=== PATIENT | female | born 2000 | race African-American/Black ===

== ENCOUNTER 2018-10-11 20:42 | Emergency (ER) | payer OTHER ==
[2018-10-11 21:03] VITALS: TEMP 98; BMI 25.7
[2018-10-11] MEDS ORDERED: DEXAMETHASONE SOD PHOSPHATE 10 MG/1 ML VIAL IVPUSH ONE (21:03)
[2018-10-11] MEDS ORDERED: LACTATED RINGERS SOLUTION 1000 ML INFUS.BAG IV ONE (21:04)
[2018-10-11] MEDS ORDERED: EPINEPHrine 1:1,000 0.3 MG/0.3 ML SYR IM ONE (21:07)
--- NOTE | 2018-10-11 21:07 | PDOC ---
History of Present Illness - General Chief Complaint: Allergic Reaction Stated Complaint: ALLERGIC REACTION Time Seen by Provider: 10/11/18 20:53 History Source: Patient Exam Limitations: No Limitations - History of Present Illness Initial Comments: 10/11/18 21:06 Pt is a 17yo F with PMH of Asthma presenting to ED with complaints of an allergic reaction. Pt came home from work at [employer] in the afternoon and had lip swelling, itchy throat and hives. At 7pm mother gave 50mg Benadryl. Pt came to ED because symptoms have not been resolving and feels worse. Pt endorses itchy throat, lip swelling and hives. Denies wheezing, SOB, nausea, vomiting, diarrhea, palpitations, fevers, chills. Per mother pt is allergic to peanuts, shellfish and has seasonal allergies but has noticed that pt has been getting these reactions more frequently. They have seen an electrical contacts adjuster and were given a prescription for EpiPen. PMD: PMH: see hpi PSH: none Social: denies Allergies: nkda Past History - Past Medical History Allergies/Adverse Reactions: Allergies Allergy/AdvReac Type Severity Reaction Status Date / Time dog dander Allergy Verified 10/11/18 20:57 Home Medications: Ambulatory Orders predniSONE [Deltasone -] 10 mg PO ASDIR #8 tab 10/11/18 Asthma: Yes Cancer: No Cardiac Disorders: No CVA: No COPD: No CHF: No DVT: No - Surgical History Abdominal Surgery: No Appendectomy: No Cardiac Surgery: No Cholecystectomy: No Gastric Stapling: No - Suicide/Smoking/Psychosocial Hx Smoking History: Never smoked Information on smoking cessation initiated: No Drug/Substance Use Hx: No Review of Systems - Review of Systems Constitutional: No: Chills, Diaphoresis, Fever HEENTM: Yes: See HPI, Other (lip swelling, itchy throat). No: Eye Pain, Throat Swelling Respiratory: Yes: Shortness of Breath. No: Cough Cardiac (ROS): No: Chest Pain, Lightheadedness, Palpitations, Syncope ABD/GI: No: Constipated, Diarrhea, Nausea, Vomiting, Abdominal cramping : No: Symptoms Reported Musculoskeletal: No: Symptoms Reported Integumentary: Yes: Pruritus. No: Change in Color, Lumps, Rash Neurological: No: Symptoms reported *Physical Exam - Vital Signs Last Vital Signs Temp Pulse Resp BP Pulse Ox 98 F 115 H 20 139/85 100 10/11/18 20:52 10/11/18 20:52 10/11/18 20:52 10/11/18 20:52 10/11/18 20:52 - Physical Exam General Appearance: Yes: Nourished, Appropriately Dressed, Moderate Distress HEENT: positive: EOMI, GANESH, Normal ENT Inspection, TMs Normal, Pharynx Normal, Hearing Grossly Normal, Other (normal oropharynx, no swelling). negative: Tonsillar Erythema Neck: positive: Trachea midline, Supple. negative: Lymphadenopathy (R), Lymphadenopathy (L) Respiratory/Chest: positive: Lungs Clear, Normal Breath Sounds. negative: Respiratory Distress, Accessory Muscle Use, Rapid RR, Paradoxal Breathing, Crackles, Rales, Rhonchi, Stridor, Wheezing, Hyperresonant, Dullness Cardiovascular: positive: Regular Rhythm, S1, S2, Tachycardia. negative: Edema , JVD, Murmur Vascular Pulses: Carotid (R): 2+, Carotid (L): 2+, Dorsalis-Pedis (R): 2+, Doralis-Pedis (L): 2+ Gastrointestinal/Abdominal: positive: Normal Bowel Sounds, Soft. negative: Distended, Guarding, Rebound, Tenderness Musculoskeletal: positive: Normal Inspection. negative: CVA Tenderness Extremity: positive: Normal Capillary Refill. negative: Coldness, Cyanosis Integumentary: positive: Normal Color, Dry, Warm. negative: Erythema, Pale, Cold, Clammy, Rash, Swelling Neurologic: positive: line technician II-XII NML intact, Fully Oriented, Alert, Normal Mood/ Affect, Normal Response, Motor Strength 5/5 Moderate Sedation - Procedure Monitoring Vital Signs: Procedure Monitoring Vital Signs Temperature 98 F 10/11/18 20:52 Pulse Rate 115 H 10/11/18 20:52 Respiratory Rate 20 10/11/18 20:52 Blood Pressure 139/85 10/11/18 20:52 O2 Sat by Pulse Oximetry (%) 100 10/11/18 20:52 ED Treatment Course - LABORATORY CBC & Chemistry Diagram: 10/11/18 21:11 10/11/18 21:11 Medical Decision Making - Medical Decision Making 10/11/18 21:57 Pt is a 17yo F with PMH of Asthma presenting to ED with complaints of an allergic reaction. Pt came home from work at [employer] in the afternoon and had lip swelling, itchy throat and hives. At 7pm mother gave 50mg Benadryl. Pt came to ED because symptoms have not been resolving and feels worse. Pt endorses itchy throat, lip swelling and hives. Denies wheezing, SOB, nausea, vomiting, diarrhea, palpitations, fevers, chills. Per mother pt is allergic to peanuts, shellfish and has seasonal allergies but has noticed that pt has been getting these reactions more frequently. They have seen an electrical contacts adjuster and were given a prescription for EpiPen. Vitals: tachycardia, saturating well on RA, normotensive PE: lower lip swelling. No tongue swelling, no pharyngeal, tonsillar swelling , Uvula not deviated, no hives, no wheezing. Pt took Benadryl at 7pm. Will give [id number], epinephrine sq and fluids. Will reassess cbc, cmp and serum Labs wnl. Pt reports feeling better. Vitals wnl, normal O2 saturation, no signs of respiratory distress. Will DC home with short course of steroids. given Referral to Dr. Gaffney. Given strict return precautions. *DC/Admit/Observation/Transfer Diagnosis at time of Disposition: Allergic reaction Qualifiers: Encounter type: initial encounter Qualified Code(s): T78.40XA - Allergy, unspecified, initial encounter - Discharge Dispostion Disposition: HOME Condition at time of disposition: Improved Decision to Admit order: No - Prescriptions Prescriptions: predniSONE [Deltasone -] 10 mg PO ASDIR #8 tab - Referrals Referrals: Wade Gaffney MD [Staff Physician] - - Patient Instructions Printed Discharge Instructions: DI for General Allergic Reactions Additional Instructions: You were seen here today for an allergic reaction. We do not know the exact cause of this. Your blood tests were normal. I recommend you see an electrical contacts adjuster to figure out what may be causing these reactions and how to better manage them. Dr. Gaffney is affiliated with [place], if you like you can call and schedule an appointment A prescription for a steroid, prednisone, was sent to your pharmacy. Please take as directed. Use the Epipen if you experience a severe reaction and go to the nearest emergency room. Come back to the emergency room if you have another reaction, have difficulty breathing, worsening hives or if any new concerning symptom develops. Thank you - Post Discharge Activity Forms/Work/School Notes: Back to Work, Parent(s) Back to Work Note, Back to School
[2018-10-11] MEDS ORDERED: EPINEPHrine/PF 1 MG/1 ML (1:1,000) AMPULE ONE (21:14)
[2018-10-11] MEDS ORDERED: DEXAMETHASONE SOD PHOSPHATE 10 MG/1 ML VIAL ONE (21:14)
[2018-10-11 21:24] LABS: BASO % 0.7 % (0-2.0); HEMATOCRIT 33.9 % (32.4-45.2); HEMOGLOBIN 11.6 GM/dL (10.7-15.3); LYMPH % 38.1 % (8-40); MCH 30.5 pg (25.7-33.7); MCHC 34.3 g/dl (32.0-36.0); MEAN CELL VOLUME 88.7 fl (80-96); MEAN PLT VOLUME 8.8 fl (7.5-11.1); MONO % 6.7 % (3.8-10.2); NEUT % 52.5 % (42.8-82.8); PLATELET COUNT 290 K/MM3 (134-434); RBC 3.82 M/mm3 (3.60-5.2); RDW 13.7 % (11.6-15.6); WHITE BLOOD COUNT 11.6 K/mm3 (4.0-10.0)
[2018-10-11] MEDS ORDERED: EPINEPHrine/PF 1 MG/1 ML (1:1,000) AMPULE SQ ONE ×2 (21:25→21:26)
--- NOTE | 2018-10-11 21:39 | PDOC ---
Attending Attestation - HPI HPI: 10/11/18 21:40 The patient is a 17 year old female, with a significant past medical history of asthma and multiple surgeries, who presents to the emergency department with, swelling to the lower lip and diffuse hives. As per patient, after work she began having swelling to the lower lip and diffuse hives after which time she took 50mg of Benadryl, without relief prompting her arrival. Patient endorses multiple allergies and she has recently started a job at [employer] since which time she has been experiencing more allergic reactions. She denies any throat swelling or changes in her voice. She denies recent fevers , chills, headache or dizziness. She denies recent nausea, vomit, diarrhea or constipation. She denies recent dysuria, frequency, urgency or hematuria. She denies recent chest pain or shortness of breath. - Physicial Exam PE: 10/11/18 21:40 GENERAL: Well-appearing, well-nourished. No apparent distress. +HEENT: Lower lip angioedema. PERRL, EOM intact. CARDIOVASCULAR: Normal S1, S2. Regular rate and rhythm. PULMONARY: Clear to auscultation bilaterally. ABDOMEN: Soft, non-distended, non-tender. EXTREMITIES: Normal ROM in all four extremities. No gross deformities. +SKIN: Diffuse rash. Warm, dry. NEUROLOGICAL: No focal neurological deficits. <Aditya Butts - Last Filed: 10/11/18 21:40> - Resident Resident Name: Maci Shin - ED Attending Attestation I have performed the following: I have examined & evaluated the patient, The case was reviewed & discussed with the resident, I agree w/resident's findings & plan, Exceptions are as noted - Medical Decision Making 10/11/18 22:55 uvula midline,no edema skin hives have resolved lungs pt never had any wheezing or respiratory distress imp food allergy, pt already has an epi pen <Xochitl Saucedo - Last Filed: 10/11/18 22:56> Attestations - Attestations 10/11/18 21:40 Documentation prepared by Aditya Butts, acting as medical assistant per diem for Xochitl Saucedo MD. <Aditya Butts - Last Filed: 10/11/18 21:40>
[2018-10-11 21:46] LABS: ALBUMIN 3.9 g/dl (3.4-5.0); ALK PHOS 58 U/L (45-117); ANION GAP 8 MMOL/L (8-16); BILIRUBIN,TOTAL 0.4 mg/dL (0.2-1); BLOOD UREA NITROGEN 12 mg/dL (7-18); CALCIUM 8.9 mg/dL (8.5-10.1); CHLORIDE 108 mmol/L (98-107); CO2 26 mmol/L (21-32); CREATININE 0.6 mg/dL (0.55-1.3); GLUCOSE,RANDOM 99 mg/dL (74-106); POTASSIUM 3.8 mmol/L (3.5-5.1); SGOT/AST 14 U/L (15-37); SGPT/ALT 20 U/L (13-61); SODIUM 141 mmol/L (136-145); TOT PROT 7.7 g/dl (6.4-8.2)
[2018-10-11 23:39] VITALS: BP 130/78; PULSE 88
== END 2018-10-11 23:39 | disposition home or self-care (01) ==
LOC: JER 20:42
PROC: 3E0333Z Introduction of Anti-inflammatory into Peripheral Vein, Percutaneous Approach (ICD-10-PCS; principal; 2018-10-11)
PROC: 3E0233Z Introduction of Anti-inflammatory into Muscle, Percutaneous Approach (ICD-10-PCS; 2018-10-11)
DX: T78.40XA Allergy, unspecified, initial encounter (principal); L50.0 Allergic urticaria; Z91.013 Allergy to seafood; Z91.010 Allergy to peanuts
CPT/HCPCS: 36415; 80053; 84703; 85025; 99282-25; J1100

== ENCOUNTER 2022-12-29 15:45 | Emergency (ER) | payer OTHER ==
[2022-12-29 15:50] VITALS: RESP 18; BMI 26.5
[2022-12-29] MEDS ORDERED: ONDANSETRON 4 MG/2 ML VIAL IVPUSH ONE (16:44)
[2022-12-29] MEDS ORDERED: diazePAM CARPU-JECT 10 MG/2 ML DISP.SYRIN IVPUSH ONE (16:44)
[2022-12-29] MEDS ORDERED: ACETAMINOPHEN 1000 MG/100 ML BAG IVPB ONE (16:44)
[2022-12-29] MEDS ORDERED: LACTATED RINGERS SOLUTION 1000 ML INFUS.BAG IV ONE (16:47)
[2022-12-29] MEDS ORDERED: diazePAM 5 MG TABLET PO ONE (16:50)
[2022-12-29] MEDS ORDERED: ONDANSETRON *ODT* 4 MG TABLET SL ONE (16:50)
[2022-12-29] MEDS ORDERED: ACETAMINOPHEN 500 MG TABLET (FP) PO ONE (16:50)
[2022-12-29] MEDS ORDERED: diazePAM 5 MG TABLET ONE (16:51)
[2022-12-29] MEDS ORDERED: ONDANSETRON *ODT* 4 MG TABLET ONE (16:51)
[2022-12-29] MEDS ORDERED: ACETAMINOPHEN 500 MG TABLET (FP) ONE (16:51)
[2022-12-29] MEDS ORDERED: LORazepam 1 MG TABLET PO ONE (17:11)
[2022-12-29] MEDS ORDERED: LORazepam 1 MG TABLET ONE (17:16)
[2022-12-29] MEDS ORDERED: FAMOTIDINE 10 MG TABLET PO ONE (17:57)
[2022-12-29] MEDS ORDERED: MAG HYDROX/AL HYDROX/SIMETH 30 ML UNIT-DOSE CUP PO ONE (17:57)
[2022-12-29] MEDS ORDERED: FAMOTIDINE 20 MG TABLET ONE (18:08)
[2022-12-29] MEDS ORDERED: MAG HYDROX/AL HYDROX/SIMETH 30 ML UNIT-DOSE CUP ONE (18:08)
[2022-12-29 19:27] LABS: THROAT:GRP A STREP NOT DETECTED (NOTDETECTED)
[2022-12-29 20:03] VITALS: BP 122/78; PULSE 105; TEMP 99.4
== END 2022-12-29 20:03 | disposition home or self-care (01) ==
LOC: JER 15:45
DX: R11.2 Nausea with vomiting, unspecified (principal); R10.13 Epigastric pain; R50.9 Fever, unspecified; R20.2 Paresthesia of skin; Z20.822 Contact with and (suspected) exposure to COVID-19
CPT/HCPCS: 0241U-QW; 87651; 99283-25; Q0162